=== PATIENT | male | born 1955 | race Caucasian/White ===

== ENCOUNTER 2022-02-06 10:21 | Emergency (ER) | payer MEDICARE ==
[~2022-02-06] VITALS: Wt 71.7 kg
[2022-02-06 11:22] LABS: HEMATOCRIT 37.7 % (42.0-52.0); MEAN CELL VOLUME 86.5 fl (80.0-94.0); MEAN CORPUSCULAR HGB 29.6 pg (27.0-31.0); MEAN CORPUSCULAR HGB CONC 34.2 g/dl (33.0-37.0); MEAN PLATELET VOLUME 11.6 fl (9.6-12.3); PLATELET COUNT AUTOMATED 65 10*3/uL (130-400); RED BLOOD COUNT 4.36 10*6/uL (4.50-5.90); RED CELL DISTRI WIDTH 13.9 % (0-14.5); WHITE BLOOD COUNT 4.8 10*3/uL (4.8-10.8)
[2022-02-06 11:26] LABS: MANUAL DIFF REFLEX YES
[2022-02-06 11:37] LABS: ALKALINE PHOSPHATASE 102 U/L (45-117); BUN 11 mg/dl (7-24); CHLORIDE 100 mmol/L (98-107); POTASSIUM 3.7 mmol/L (3.5-5.1); SGOT/AST 196 IU/L (3-35); SGPT/ALT 225 U/L (12-78); SODIUM 133 mmol/L (136-145); TOTAL PROTEIN 6.2 gm/dL (6.4-8.2)
[2022-02-06 11:43] LABS: ATYPICAL LYMPHS 1 % (0-0); PLATELET SUFFICIENCY LOW (NORMAL); TOTAL CELLS COUNTED 100 #CELLS
[2022-02-06] MEDS ORDERED: METRONIDAZOLE500 M1 PO (17:04)
[2022-02-06] MEDS ORDERED: CIPRO500 MG PO (17:04)
== END 2022-02-06 17:37 | disposition home or self-care (01) ==
LOC: ED 10:21
PROVIDERS: Internal Medicine
DX: R50.9 Fever, unspecified (principal); R74.01 Elevation of levels of liver transaminase levels; R10.84 Generalized abdominal pain

== ENCOUNTER 2022-02-07 14:13 | Emergency (ER) | payer MEDICARE ==
[~2022-02-07] VITALS: Ht 180.3 cm; Wt 71.7 kg
[~2022-02-07 14:13] MED LIST: CIPRO500 MG PO; METRONIDAZOLE500 M1 PO
[2022-02-07 20:51] LABS: HEMATOCRIT 36.2 % (42.0-52.0); MEAN CELL VOLUME 84.8 fl (80.0-94.0); MEAN CORPUSCULAR HGB 29.5 pg (27.0-31.0); MEAN CORPUSCULAR HGB CONC 34.8 g/dl (33.0-37.0); MEAN PLATELET VOLUME 12.3 fl (9.6-12.3); PLATELET COUNT AUTOMATED 79 10*3/uL (130-400); RED BLOOD COUNT 4.27 10*6/uL (4.50-5.90); RED CELL DISTRI WIDTH 14.6 % (0-14.5); WHITE BLOOD COUNT 7.1 10*3/uL (4.8-10.8)
[2022-02-07 21:26] LABS: MANUAL DIFF REFLEX YES
[2022-02-07 21:38] LABS: ALKALINE PHOSPHATASE 90 U/L (45-117); BUN 17 mg/dl (7-24); CHLORIDE 98 mmol/L (98-107); CREATININE 0.92 mg/dL (0.70-1.30); LIPASE 93 U/L (73-393); POTASSIUM 3.8 mmol/L (3.5-5.1); SGPT/ALT 190 U/L (12-78); SODIUM 129 mmol/L (136-145)
[2022-02-07 21:44] LABS: SGOT/AST 123 IU/L (3-35)
[2022-02-07 21:52] LABS: ATYPICAL LYMPHS 1 % (0-0); TOTAL CELLS COUNTED 100 #CELLS
[2022-02-07 21:53] LABS: PLATELET SUFFICIENCY LOW (NORMAL); VACUOLATION OF NEUTROPHILS SLIGHT
[2022-02-07 21:54] LABS: MICROCYTOSIS SLIGHT
== END 2022-02-08 00:46 | disposition home or self-care (01) ==
LOC: ED 14:13
PROVIDERS: Emergency Medicine
DX: R50.9 Fever, unspecified (principal); R53.1 Weakness; R53.83 Other fatigue; Z79.2 Long term (current) use of antibiotics; Z79.899 Other long term (current) drug therapy